=== PATIENT | female | born 2005 | race Hispanic/Latino ===

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

== ENCOUNTER 2024-07-30 12:42 | Emergency (ER) | payer BC, MEDICAID ==
[~2024-07-30] VITALS: Ht 152.4 cm; Wt 61.2 kg
[~2024-07-30 12:42] MED LIST: GUAI1TBM19 PO; IBUP-1493 PO
[2024-07-30 13:31] LABS: APPEARANCE,URINE CLOUDY (CLEAR); BILIRUBIN,URINE NEGATIVE (NEGATIVE); COLOR,URINE LIGHT-YELLOW (YELLOW); GLUCOSE, URINE (UA) NEGATIVE (NEGATIVE); KETONES,URINE NEGATIVE (NEGATIVE); LEUKOCYTE ESTERASE ,URINE 500 Leu/uL (NEGATIVE); NITRATE,URINE NEGATIVE (NEGATIVE); PROTEIN,URINE NEGATIVE (NEGATIVE); UROBILINOGEN,URINE 0.2 mg/dL (0.2-1.0)
[2024-07-30 13:40] LABS: ADD UA MICROSCOPIC YES
[2024-07-30 13:43] LABS: BACTERIA,URINE RARE /HPF (None Seen); MUCUS,URINE RARE LPF (None Seen); SQUAMOUS EPITHELIAL CELL,UR FEW /HPF (0-2)
[2024-07-30 14:40] LABS: BASOPHILS # (AUTO) 0.04 K/uL (0.00-0.20); BASOPHILS % (AUTO) 0.6 % (0.0-5.0); EOSINOPHILS # (AUTO) 0.06 K/uL (0.00-0.70); EOSINOPHILS % (AUTO) 0.9 % (0.0-8.0); IMMATURE GRANULOCYTE ABSOLUTE 0.01 K/uL (0-1); LYMPHOCYTES # (AUTO) 1.8 K/uL (1.0-4.8); LYMPHOCYTES % (AUTO) 25.5 % (21.0-51.0); MEAN CORPUSCULAR HGB CONC 33.8 g/dL (32.0-36.0); MEAN CORPUSCULAR VOLUME 85.9 fL (80-100); MONOCYTES # (AUTO) 0.5 K/uL (0.1-1.0); MONOCYTES % (AUTO) 6.4 % (3.0-13.0); NEUTROPHILS # (AUTO) 4.7 K/uL (1.8-7.7); NEUTROPHILS % (AUTO) 66.5 % (40.0-77.0); PLATELET COUNT (AUTO) 279 K/uL (130-400); RED BLOOD CELL COUNT(AUTO) 4.89 MIL/uL (4.00-5.50); RED CELL DISTRIBUTION WIDTH 12.3 % (11.0-15.5)
[2024-07-30 14:52] LABS: CREATININE 0.7 mg/dL (0.5-1.0); POTASSIUM 3.9 mmol/L (3.5-5.1)
[2024-07-30 14:58] LABS: ALBUMIN 4.2 g/dL (3.5-5.0); BILIRUBIN,DIRECT 0.1 mg/dL (0.0-0.3); BILIRUBIN,TOTAL 0.4 mg/dL (0.2-1.0); TOTAL PROTEIN, SERUM 8.3 g/dL (6.0-8.3)
[2024-07-30] MEDS ORDERED: KETO10TA2 PO (15:10)
[2024-07-30] MEDS ORDERED: CYCL10TA16 PO (15:10)
[2024-07-30] MEDS: ketOROlac 30MG VIAL (30MG/ML) IM ONE (15:38)
[2024-07-30] MEDS: ORPHENADRINE 60MG/2ML IM ONE (15:38)
[2024-07-30 15:45] VITALS: BP 100/74; PULSE 74; RESP 13; TEMP 98.3; O2SAT 98
== END 2024-07-30 16:21 | disposition home or self-care (01) ==
LOC: EDH 12:42
DX: S16.1XXA Strain of muscle, fascia and tendon at neck level, initial encounter (principal); S39.012A Strain of muscle, fascia and tendon of lower back, initial encounter; J45.909 Unspecified asthma, uncomplicated; Z79.1 Long term (current) use of non-steroidal anti-inflammatories (NSAID); V89.2XXA Person injured in unspecified motor-vehicle accident, traffic, initial encounter; Y93.89 Activity, other specified; Y92.89 Other specified places as the place of occurrence of the external cause; Y99.8 Other external cause status
CPT/HCPCS: 99284; 80076; 80048; 84703; 83690; 85025; 87086 ×2; 87186; 81001; 36415; 96372 ×2; J1885; J2360

== ENCOUNTER 2024-11-20 10:16 | Emergency (ER) | payer BC, MEDICAID ==
[~2024-11-20] VITALS: Ht 152.4 cm; Wt 76.2 kg
[~2024-11-20 10:16] MED LIST changes: +CYCL10TA16 PO; +KETO10TA2 PO
--- NOTE | 2024-11-20 10:50 | ERN ---
General Chief Complaint: Sore Throat Stated Complaint: SORE THROAT Time Seen by MD: 10:24 Time Seen by Midlevel: 10:24 Source: patient History of Present Illness Initial Comments Patient is a 19-year-old female with a past medical history of asthma who is currently 10 weeks presenting to the emergency department with a dry cough that started yesterday. She also reports right ear fullness and a sore throat. Denies any fever, chills, productive cough, or any other symptoms at this time. Denies sick contacts. Patient was unsure what [id number] medication she could take so she decided to report to the ER for further evaluation. She last saw her OBGYN approximately two weeks ago and has an appointment scheduled for next week. Allergies: Coded Allergies: No Known Allergies (Unverified Allergy, Unknown, 09/27/23) Home Meds Active Scripts Loratadine (Loratadine) 10 Mg Tablet, 1 TAB PO DAILY for allergy symptoms for 7 Days, #7 TAB 0 Refills Prov:CAMILLA COREAS 11/20/24 Doxylamine/Pyridoxine HCl (Diclegis Dr 10-10 mg Tablet) 10 Mg-10 Mg Tablet.dr, 1 EACH PO BID for 5 Days, #10 TAB Prov:CAMILLA COREAS 11/20/24 Cyclobenzaprine HCl (Flexeril) 10 Mg Tab, 10 MG PO BID for muscle sstiffness for 5 Days, #10 TAB 0 Refills Prov:CAMILLA COREAS 07/30/24 Ketorolac Tromethamine (Ketorolac Tromethamine) 10 Mg Tablet, 1 TAB PO TID for pain for 5 Days, #15 TAB 0 Refills Prov:CAMILLA COREAS 07/30/24 Ibuprofen (Motrin/Advil) 800 Mg Tab, 800 MG PO TID, #30 TAB Prov:RAMON JORGE MD 09/27/23 Guaifenesin/Dextromethorphan (Mucinex Dm ER 1,200-60 mg Tab) 1,200 Mg-60 Mg Tbmp.12hr, 1 EACH PO BID, #20 TAB Prov:RAMON JORGE MD 09/27/23 Past Medical History Past Medical History: Asthma Past Surgical History: None Family History Family History: Negative Social History Social History: Negative, Lives with family Female( History) LMP: Sep 09, 2024 : 1 Para: 0 Aborts: 0 ROS Dictation CONSTITUTIONAL: Negative except for HPI HEAD/FACE: Negative except for HPI EENT: Negative except for HPI RESPIRATORY: Negative except for HPI GASTROINTESTINAL/ABDOMINAL: Negative except for HPI GENITOURINARY: Negative except for HPI MUSCULOSKELETAL: Negative except for HPI INTEGUMENTARY: Negative except for HPI NEUROLOGICAL/PSYCH: Negative except for HPI HEMATOLOGIC/LYMPHATIC: Negative except for HPI All Systems Negative, Except as noted above. 13 point review of systems assessed and all negative except for above. Physical Exam Physical Exam Dictation Vital Signs reviewed General Appearance: Alert, oriented x 3, no acute distress, well developed, nourished. Head and Face: non-traumatic. Eyes: PERRL, pink conjunctivas, eyelid no trauma, anterior chamber with arcus senilis. Ears: Pinnas intact and no signs of trauma, cerumen impaction to the right ear, TM no erythema bilaterally Nose: No discharge, no bleeding. Oropharynx: Mouth normal, tongue pink, pharynx clear,no erythema, tonsils no exudates, no abscesses noted, mucous membrane moist Neck: Supple, non-tender, no thyromegaly, no masses, no JVD, no bruits Breast:Deferred Chest:No tenderness, no crepitus, no paradoxical movement, no retractions Lungs:Clear, well-ventilated, symmetric, no rales, no wheezing, no rhonchi, no stridor, good breath sounds bilaterally Heart: Regular rate, regular rhythm, no murmur, no gallops Vascular: no peripheral edema, Abdomen: Soft, positive bowel sounds, nondistended, no guarding, nontender, no rebound, no masses no hepatomegaly, no splenomegaly, no Betancourt's sign, no hernias. Rectal: Deferred Genital: Deferred Neurological: Normal speech, motor function intact, sensory function intact Musculoskeletal: Neck nontender, full range of motion, back nontender, full range of motion, Extremities: nontender, full range of motion Skin: Color pink, dry, no turgor, no rash, no lacerations, no abrasions, no contusions. Lymphatic: Deferred Results Laboratory and Microbiology Lab and Micro Result Laboratory Tests Test 11/20/24 10:59 Influenza Type A Antigen Negative For Type A Influenza Type B Antigen Negative For Type B SARS-CoV-2, RNA, NAAT NEGATIVE SARS CoV-2 Group A Streptococcus Rapid negative (NEGATIVE) Labs Reviewed?: Yes MDM MDM: Patient is a 19-year-old female with a past medical history of asthma who is currently 10 weeks presenting to the emergency department with a dry cough that started yesterday. She also reports right ear fullness and a sore throat. Denies any fever, chills, productive cough, or any other symptoms at this time. Denies sick contacts. Patient was unsure what [id number] medication she could take so she decided to report to the ER for further evaluation. She last saw her OBGYN approximately two weeks ago and has an appointment scheduled for next week. On physical examination the patient is in no acute respiratory distress. Initial vital signs are stable. Patient is afebrile and nontoxic appearing. She does have a dry cough during my examination however lung examination is unremarkable. There was no wheezing, rhonchi, or rales. Her ENT examination is remarkable for a cerumen impaction to the right ear. The ear was cleaned with an ear wick. I was able to visualize the tympanic membrane after cleansing the ear. There was no erythema to bilateral tympanic membranes. There is some mild erythema to the posterior oropharynx but no signs of peritonsillar abscess or peritonsillar exudates. Patient will be given a small dose of steroids IM and was swabbed for COVID/flu, and strep. Respiratory swabs are negative. Symptoms are most likely viral in nature. No need for chest x-ray at this time as the patient does not have adventitious breath sounds and vital signs are unremarkable. Patient was afebrile. We will hold off on x-ray at this time given that she was 10 weeks . Patient agrees with this plan and is comfortable for discharge. She will need to follow up with your PCP outpatient. Differential diagnosis: Viral syndrome, upper respiratory infection, acute bronchitis, strep There are no social concerns with this patient. Prescription drug management Prescriptions will include: Loratadine and diclegis Medical management and examination interpretation discussions were had by me with other qualified healthcare professionals as indicated for the patient's care. ED Course Orders Procedure Category Date Status Time Covid Rna Naat LAB 11/20/24 Complete 10:41 Influenza Type A & B, LAB 11/20/24 Complete Rapid 10:41 Rapid (Group A Strep) LAB 11/20/24 Complete 10:41 Dexamethasone 4mg/Ml PHA 11/20/24 Complete 1ml Vial (Dexametha 11:00 Current Medications Medications (Trade) Dose Ordered Sig/Ralph Route PRN Reason Start Time Stop Time Status Last Admin Dose Admin Dexamethasone Sodium Phosphate (dexaMETHasone 4MG/ML 1ML VIAL) 4 mg ONCE ONCE IM 11/20/24 11:00 11/20/24 11:01 DC 11/20/24 10:55 Vital Signs Date Time Temp Pulse Resp B/P (MAP) Pulse Ox O2 Delivery O2 Flow Rate FiO2 11/20/24 10:18 97.9 83 20 115/67 99 DX & DISP Disposition: Discharge Departure Impression: Primary Impression: Pharyngitis with viral syndrome Condition: Stable Scripts Loratadine (Loratadine) 10 Mg Tablet 1 TAB PO DAILY for allergy symptoms for 7 Days, #7 TAB 0 Refills Prov: CAMILLA COREAS 11/20/24 Doxylamine/Pyridoxine HCl (Mattie Mejia 10-10 mg Tablet) 10 Mg-10 Mg Tablet.dr 1 EACH PO BID for 5 Days, #10 TAB Prov: CAMILLA COREAS 11/20/24 Additional Instructions: You have tested negative for influenza a, influenza B, COVID-19, and strep pharyngitis. You were given a small dose of steroids in the emergency department which should help improve your symptoms over the next couple of days. I have given you a prescription for nausea medication as well as an allergy medication that is safe during . You need to follow up with your primary care doctor. Keep your appointment with your OBGYN for further evaluation. Referrals: MARK LOCKWOOD JR, MD (PCP) Time of Disposition: 11:44 I have reviewed the case, and I agree with, Diagnosis and Plan I performed the substantive portion of the visit. I have reviewed and personally made and approve the management plan that is documented in the note by myself or the SAAD. I acknowledge for responsibility for the patient's management plan. CAMILLA COREAS Nov 20, 2024 10:50
[2024-11-20] MEDS: dexaMETHasone SOD PHOSPHATE 4 MG/ML 1ML VIAL IM ONE (10:55)
[2024-11-20 11:18] LABS: RAPID GROUP A STREP negative (NEGATIVE)
[2024-11-20 11:28] LABS: INFLUENZA TYPE A Negative For Type A (NEGATIVE); INFLUENZA TYPE B Negative For Type B (NEGATIVE)
[2024-11-20 11:39] LABS: SARS-CoV-2, RNA, NAAT NEGATIVE SARS CoV-2 (NEGATIVE)
[2024-11-20] MEDS ORDERED: LORA10TA7 PO (11:43)
[2024-11-20] MEDS ORDERED: DOXY1TAB3 PO (11:43)
[2024-11-20 11:45] VITALS: BP 119/71; PULSE 82; RESP 20; TEMP 97.9; O2SAT 99
== END 2024-11-20 11:49 | disposition home or self-care (01) ==
LOC: EDH 10:16
DX: O99.511 Diseases of the respiratory system complicating pregnancy, first trimester (principal); J02.8 Acute pharyngitis due to other specified organisms; B97.89 Other viral agents as the cause of diseases classified elsewhere; J45.909 Unspecified asthma, uncomplicated; Z20.822 Contact with and (suspected) exposure to COVID-19; Z3A.10 10 weeks gestation of pregnancy; Z79.1 Long term (current) use of non-steroidal anti-inflammatories (NSAID)
CPT/HCPCS: 99284; 87635; 87880; 87804 ×2; 96372; J1100